=== PATIENT | male | born 1955 | race American Indian/Alaskan Native ===

== ENCOUNTER 2016-09-07 21:09 | Emergency (ER) | payer SELFPAY ==
[2016-09-07] MEDS ORDERED: ZOFRAN ONE (21:46)
[2016-09-07] MEDS ORDERED: DILAUDID ONE (21:46)
[2016-09-07] MEDS ORDERED: ZOFRAN IV ONE (21:52)
[2016-09-07] MEDS ORDERED: DILAUDID IV ONE (21:52)
[2016-09-07 21:54] LABS: Basophils % (Auto) 0.5 % (0.0-1.8); Eosinophils % (Auto) 2.5 % (0.0-4.3); Hematocrit 43.7 % (35.5-45.6); Hemoglobin 14.6 gm/dl (11.8-15.2); Mean Corpuscular HGB Conc 33 % (32-34); Mean Corpuscular Hemoglobin 30 pg (28-32); Mean Corpuscular Volume 89 fl (84-94); Platelet Count 214 K/mm3 (140-440); Red Blood Count 4.92 M/mm3 (3.65-5.03); Red Cell Distribution Width 13.8 % (13.2-15.2)
[2016-09-07] MEDS ORDERED: NORMODYNE IV ONE (22:04)
[2016-09-07] MEDS ORDERED: NACL 0.9% 500 ML 500 ML IV ONE (22:04)
[2016-09-07 22:24] LABS: Alanine Aminotransferase 17 units/L (7-56); Albumin 4.3 g/dL (3.9-5); Albumin/Globulin Ratio 1.3 %; Alkaline Phosphatase 109 units/L (35-129); Anion Gap 15 mmol/L; BUN/Creatinine Ratio 14.61; Blood Urea Nitrogen 19 mg/dL (9-20); Calcium 9.4 mg/dL (8.4-10.2); Carbon Dioxide 27 mmol/L (22-30); Chloride 100.1 mmol/L (98-107); Glucose 154 mg/dL (75-100); Lipase 25 units/L (13-60); Potassium 4.2 mmol/L (3.6-5.0); Sodium 138 mmol/L (137-145); Total Protein 7.6 g/dL (6.3-8.2)
[2016-09-07 22:35] LABS: Bilirubin,Urine NEG (Negative); Blood,Urine LG (Negative); Ketones,Urine NEG (Negative); Leukocyte Esterase,Urine NEG (Negative); Mucus,Urine FEW /HPF; Nitrite,Urine NEG (Negative); Protein,Urine <15 mg/dL mg/dL (Negative); Urobilinogen,Urine < 2.0 mg/dL (<2.0)
[2016-09-08] MEDS ORDERED: VALIUM IV ONE (00:11)
[2016-09-08] MEDS ORDERED: MORPHINE IV ONE (00:11)
--- NOTE | 2016-09-08 02:16 | Emergency Department Report ---
HPI - General Chief Complaint: Abdominal Pain Time Seen by Provider: 09/07/16 22:03 - HPI HPI: The patient's a 61-year-old male who presents for evaluation of abdominal pain. The patient reports abdominal pain, onset one hour prior to arrival, 10/10 in severity, crampy in quality, generalized, constant since onset. He also reports associated nausea without emesis. He says that his symptoms began at the eating curried chicken for dinner. The patient denies fever, chills, night sweats, diarrhea, blood in the stool, dark tarry stool, dysuria, hematuria, flank pain, genital discharge, inability to pass flatus. ED Past Medical Hx - Past Medical History Previous Medical History?: Yes Hx Hypertension: Yes - Surgical History Past Surgical History?: No - Social History Smoking Status: Never Smoker Substance Use Type: None - Medications Home Medications: Home Medications Medication Instructions Recorded Confirmed Last Taken Type Lisinopril 20 mg PO BID 09/07/16 09/07/16 Unknown History ED Review of Systems ROS: Stated complaint: POSS FOOD POISONING Other details as noted in HPI Constitutional: denies: fever ENT: denies: throat or neck pain Respiratory: denies: cough, shortness of breath Cardiovascular: denies: chest pain Endocrine: denies unexplained weight loss or gain Gastrointestinal: reports: abdominal pain, nausea Genitourinary: denies: dysuria Musculoskeletal: denies: leg swelling Skin: denies: rash Neurological: denies: headache Hematological/Lymphatic: denies: easy bleeding or easy bruising Psych: denies sadness or hopelessness Physical Exam - Physical Exam Vital Signs: Vital Signs 09/07/16 09/07/16 09/07/16 21:15 21:59 22:02 Temperature 97.8 F 98 F Pulse Rate 83 82 Respiratory 28 H 20 20 Rate Blood Pressure 190/129 Blood Pressure 185/107 [Left] O2 Sat by Pulse 98 100 100 Oximetry 09/07/16 09/07/16 09/07/16 22:11 22:35 23:41 Temperature Pulse Rate 79 84 85 Respiratory 16 14 Rate Blood Pressure 172/102 Blood Pressure 162/91 151/81 [Left] O2 Sat by Pulse 100 100 Oximetry 09/08/16 01:59 Temperature 98 F Pulse Rate 81 Respiratory 16 Rate Blood Pressure Blood Pressure 142/84 [Left] O2 Sat by Pulse 100 Oximetry Physical Exam: General: well-nourished, well-developed, no acute distress Head: Normocephalic, atraumatic Eyes: normal sclera ENT: Mucous membranes are pale and dry Neck: No neck stiffness, no cervical adenopathy Respiratory: Breath sounds equal bilaterally, no wheezing, rales, or rhonchi Cardio: S1 and S2 present, no murmurs, rubs, gallops, capillary refill is delayed Abdomen: Normoactive bowel sounds, soft abdomen, generalized tenderness to palpation present, no rigidity, no guarding or rebound tenderness Musc: No pitting edema Skin: No rash Neuro: no facial drooping, normal speech Psych: Normal affect ED Course Vital Signs 09/07/16 09/07/16 09/07/16 21:15 21:59 22:02 Temperature 97.8 F 98 F Pulse Rate 83 82 Respiratory 28 H 20 20 Rate Blood Pressure 190/129 Blood Pressure 185/107 [Left] O2 Sat by Pulse 98 100 100 Oximetry 09/07/16 09/07/16 09/07/16 22:11 22:35 23:41 Temperature Pulse Rate 79 84 85 Respiratory 16 14 Rate Blood Pressure 172/102 Blood Pressure 162/91 151/81 [Left] O2 Sat by Pulse 100 100 Oximetry 09/08/16 01:59 Temperature 98 F Pulse Rate 81 Respiratory 16 Rate Blood Pressure Blood Pressure 142/84 [Left] O2 Sat by Pulse 100 Oximetry ED Medical Decision Making - Lab Data Result diagrams: 09/07/16 21:25 09/07/16 21:25 - Medical Decision Making The patient was seen and examined by myself. The patient is placed on a rag room supervisor and continuous pulse ox. On initial evaluation, the patient was found to be in no distress. Evaluation orders are placed. IV access is established and the patient is given 1 L normal saline fluid bolus and Zofran for nausea, and IV dilaudid for pain. Lab results revealed mildly elevated glucose 154, with normal bicarbonate and anion gap, not consistent with DKA, and labs were overall grossly non- concerning including WBC, hemoglobin, hematocrit, electrolytes, renal function. The patient was reevaluated and reported that his pain was improved but persisted. On reexamination the patient remains with diffuse tenderness. The patient is given an IV dose of morphine for his pain. CT scan abdomen and pelvis is ordered. The patient is signed off to the overnight physician Dr. Reyes, home agrees to follow-up on results of CT scan of the abdomen and pelvis and to arrange appropriate disposition. Critical care attestation.: If time is entered above; I have spent that time in minutes in the direct care of this critically ill patient, excluding procedure time. ED Disposition Clinical Impression: Dehydration, Acute generalized abdominal pain Disposition: DISCHARGED TO HOME OR SELFCARE Is pt being admited?: No Does the pt Need Aspirin: No Condition: Stable Instructions: Acute Abdominal Pain (ED) Referrals: PRIMARY CARE, [Primary Care Provider] - 3-5 Days Forms: Work/School Release Form(ED) Time of Disposition: 02:29
[2016-09-08] MEDS ORDERED: NACL ONE (02:32)
--- NOTE | 2016-09-08 05:28 | Cat Scan Report ---
FINAL REPORT PROCEDURE: CT ABDOMEN PELVIS W CON TECHNIQUE: Computerized axial tomography of the abdomen and pelvis was performed after the IV injection of iodinated nonionic contrast. HISTORY: abdominal pain COMPARISON: No prior studies are available for comparison. FINDINGS: Visualized lower thorax: No significant abnormality. Liver: Normal size and attenuation. Spleen: Normal size and attenuation. Gallbladder and biliary system: Normal. Pancreas: Normal. Adrenals: Normal. Kidneys: There is a 3 centimeter cyst in the upper pole of the right kidney. There is a 3 millimeter stone in the mid left ureter causing moderate acute left hydronephrosis and hydroureter.. GI tract: There is diverticulosis and colitis of the left colon. There is no obstruction. The stomach and small bowel are unremarkable. The appendix is not seen.. Lymph nodes and mesentery: Normal. Vasculature: Normal. Bladder: Normal. Reproductive organs: Normal. Peritoneum: There is no ascites or free air, abscess or adenopathy.. Musculoskeletal structures: No significant abnormality. Other: None. IMPRESSION: There is a 3 centimeter cyst in the upper pole of the right kidney. There is a 3 millimeter stone in the mid left ureter causing moderate acute left hydronephrosis and hydroureter.. There is diverticulosis and colitis of the left colon. There is no obstruction. The stomach and small bowel are unremarkable. The appendix is not seen.. There is no ascites or free air, abscess or adenopathy..
--- NOTE | 2016-09-08 06:16 | Event Note ---
Date: 09/08/16 CT scan demonstrates left-sided colitis. The patient is afebrile, and tolerating liquid feeds, and does not have an exquisitely tender abdomen. The patient will be discharged with pain medication, nausea medication, antibiotics , and will be instructed to follow-up with outpatient gastroenterology. Return precautions are reviewed. Vital Signs 09/07/16 09/07/16 09/07/16 21:15 21:59 22:02 Temperature 97.8 F 98 F Pulse Rate 83 82 Respiratory 28 H 20 20 Rate Blood Pressure 190/129 Blood Pressure 185/107 [Left] O2 Sat by Pulse 98 100 100 Oximetry 09/07/16 09/07/16 09/07/16 22:11 22:35 23:41 Temperature Pulse Rate 79 84 85 Respiratory 16 14 Rate Blood Pressure 172/102 Blood Pressure 162/91 151/81 [Left] O2 Sat by Pulse 100 100 Oximetry 09/08/16 01:59 Temperature 98 F Pulse Rate 81 Respiratory 16 Rate Blood Pressure Blood Pressure 142/84 [Left] O2 Sat by Pulse 100 Oximetry Lab Results 09/07/16 09/07/16 09/07/16 Range/Units 21:25 21:25 22:03 WBC 7.0 (4.5-11.0) K/mm3 RBC 4.92 (3.65-5.03) M/mm3 Hgb 14.6 (11.8-15.2) gm/dl Hct 43.7 (35.5-45.6) % MCV 89 (84-94) fl MCH 30 (28-32) pg MCHC 33 (32-34) % RDW 13.8 (13.2-15.2) % Plt Count 214 (140-440) K/mm3 Lymph % (Auto) 42.1 H (13.4-35.0) % Cannon % (Auto) 7.4 H (0.0-7.3) % Eos % (Auto) 2.5 (0.0-4.3) % Baso % (Auto) 0.5 (0.0-1.8) % Lymph # 3.0 (1.2-5.4) K/mm3 Cannon # 0.5 (0.0-0.8) K/mm3 Eos # 0.2 (0.0-0.4) K/mm3 Baso # 0.0 (0.0-0.1) K/mm3 Seg Neutrophils % 47.5 (40.0-70.0) % Seg Neutrophils # 3.3 (1.8-7.7) K/mm3 Sodium 138 (137-145) mmol/L Potassium 4.2 (3.6-5.0) mmol/L Chloride 100.1 (98-107) mmol/L Carbon Dioxide 27 (22-30) mmol/L Anion Gap 15 mmol/L BUN 19 (9-20) mg/dL Creatinine 1.3 (0.8-1.5) mg/dL Estimated GFR > 60 ml/min BUN/Creatinine Ratio 14.61 % Glucose 154 H (75-100) mg/dL Calcium 9.4 (8.4-10.2) mg/dL Total Bilirubin 0.30 (0.1-1.2) mg/dL AST 22 (5-40) units/L ALT 17 (7-56) units/L Alkaline Phosphatase 109 (35-129) units/L Total Protein 7.6 (6.3-8.2) g/dL Albumin 4.3 (3.9-5) g/dL Albumin/Globulin Ratio 1.3 % Lipase 25 (13-60) units/L Urine Color Yellow (Yellow) Urine Turbidity Clear (Clear) Urine pH 6.0 (5.0-7.0) Ur Specific [place] 1.019 (1.003-1.030) Urine Protein <15 mg/dl (Negative) mg/dL Urine Glucose (UA) Neg (Negative) mg/dL Urine Ketones Neg (Negative) mg/dL Urine Blood Lg (Negative) Urine Nitrite Neg (Negative) Urine Bilirubin Neg (Negative) Urine Urobilinogen < 2.0 (<2.0) mg/dL Ur Leukocyte Esterase Neg (Negative) Urine WBC (Auto) 1.0 (0.0-6.0) /HPF Urine RBC (Auto) 49.0 (0.0-6.0) /HPF Urine Mucus Few /HPF
[2016-09-08] MEDS ORDERED: LEVAQUIN PO ONE (06:18)
[2016-09-08] MEDS ORDERED: BENTYL IM ONE (06:18)
[2016-09-08] MEDS ORDERED: FLAGYL PO ONE (06:18)
[2016-09-08 06:50] VITALS: BP 132/76
--- NOTE | 2016-09-08 10:15 | XRay Report ---
ABDOMINAL SERIES: History: Abdominal pain. Supine and upright views of the abdomen and frontal view of the chest are submitted. There is gas mixed with moderate stool throughout the colon. There are no dilated loops of bowel or air-fluid levels. There is no free intraperitoneal gas. The lungs are clear. IMPRESSION: Fecal retention.
== END 2016-09-08 06:54 | disposition home or self-care (01) ==
LOC: ED 21:09
DX: E86.0 Dehydration (principal); R10.84 Generalized abdominal pain; I10 Essential (primary) hypertension
CPT/HCPCS: 36415; 74022; 74177; 80053; 81001; 83690; 85025; 96361; 96372; 96374; 96375; 99285; J0500; J1170; J2270; J2405; J3360; J7040; Q9967

== ENCOUNTER 2016-09-09 03:24 | Emergency (ER) | payer SELFPAY ==
[2016-09-09 04:33] VITALS: BP 142/86
[2016-09-09 05:20] LABS: Anion Gap 19 mmol/L; BUN/Creatinine Ratio 13.33; Blood Urea Nitrogen 16 mg/dL (9-20); Calcium 9.3 mg/dL (8.4-10.2); Carbon Dioxide 24 mmol/L (22-30); Chloride 102.3 mmol/L (98-107); Glucose 136 mg/dL (75-100); Sodium 140 mmol/L (137-145)
[2016-09-09 06:49] LABS: Hematocrit 46.4 % (35.5-45.6); Hemoglobin 15.2 gm/dl (11.8-15.2); Mean Corpuscular HGB Conc 33 % (32-34); Mean Corpuscular Hemoglobin 29 pg (28-32); Mean Corpuscular Volume 90 fl (84-94); Platelet Count 206 K/mm3 (140-440); Red Blood Count 5.18 M/mm3 (3.65-5.03); Red Cell Distribution Width 13.9 % (13.2-15.2)
[2016-09-09 07:26] LABS: Basophils % (Auto) 0.3 % (0.0-1.8); Eosinophils % (Auto) 0.1 % (0.0-4.3)
[2016-09-09 07:29] LABS: Diff Status Complete
[2016-09-09 08:09] LABS: Blastocytes % (Manual) 0 %; Eosinophils % (Manual) 0 % (0.0-4.3)
[2016-09-09 08:10] LABS: RBC Morphology Normal
== END 2016-09-09 06:05 | disposition left against medical advice (07) ==
LOC: ED 03:24
DX: R10.9 Unspecified abdominal pain (principal); Z53.21 Procedure and treatment not carried out due to patient leaving prior to being seen by health care provider
CPT/HCPCS: 36415; 80048; 85007; 85025

== ENCOUNTER 2016-09-12 06:48 | Emergency (ER) | payer SELFPAY ==
[2016-09-12 07:40] LABS: Basophils % (Auto) 0.8 % (0.0-1.8); Eosinophils % (Auto) 1.6 % (0.0-4.3); Hematocrit 45.8 % (35.5-45.6); Hemoglobin 15.1 gm/dl (11.8-15.2); Mean Corpuscular HGB Conc 33 % (32-34); Mean Corpuscular Hemoglobin 29 pg (28-32); Mean Corpuscular Volume 89 fl (84-94); Platelet Count 213 K/mm3 (140-440); Red Blood Count 5.17 M/mm3 (3.65-5.03); Red Cell Distribution Width 13.4 % (13.2-15.2); White Blood Count 7.8 K/mm3 (4.5-11.0)
[2016-09-12] MEDS ORDERED: NACL 0.9% 1000 ML 1,000 ML IV ONE (07:50)
[2016-09-12] MEDS ORDERED: TORADOL IV ONE (07:50)
[2016-09-12] MEDS ORDERED: DILAUDID IV ONE (07:50)
--- NOTE | 2016-09-12 07:55 | Emergency Department Report ---
ED Abdominal Pain HPI - General Chief Complaint: Abdominal Pain Stated Complaint: ABD PAIN Time Seen by Provider: 09/12/16 07:37 Source: patient Mode of arrival: Ambulatory Limitations: No Limitations - History of Present Illness Initial Comments: 61 year old male with a past medical history of hypertension presents to the hospital complains of left-sided flank pain. Patient was seen here on September [address] Yao. Diagnosed with a 3 mm stone in the mid left ureter causing moderate acute left hydronephrosis and hydroureter. There is also diverticulosis and colitis of the left colon without signs of obstruction. Patient was placed on Bentyl, lisinopril, Cipro, Reglan, and Flagyl. No pain medications were prescribed. Patient presented the next day on the due to recurrent pain but felt better prior to M.D. evaluation and left prior to being seen. Pain reoccurred yesterday and is currently left-sided, 10/10 in intensity, intermittent. Patient unable to characterize pain at this time. Positive nausea and diaphoresis. No reports of vomiting. - Related Data Home Medications Medication Instructions Recorded Confirmed Last Taken Lisinopril 20 mg PO BID 09/07/16 09/12/16 Unknown Previous Rx's Medication Instructions Recorded Last Taken Type Ciprofloxacin HCl [Ciprofloxacin 500 mg PO Q12H #10 tab 09/08/16 Unknown Rx TAB] Dicyclomine [Bentyl] 10 mg PO QID PRN #20 capsule 09/08/16 Unknown Rx Lisinopril [Zestril TAB] 20 mg PO QDAY #30 tablet 09/08/16 Unknown Rx Metoclopramide [Reglan] 10 mg PO QID PRN #30 tablet 09/08/16 Unknown Rx metroNIDAZOLE [Flagyl] 500 mg PO Q8HR #15 tablet 09/08/16 Unknown Rx Ketorolac [Toradol] 10 mg PO Q6H PRN #20 tablet 09/12/16 Unknown Rx Tamsulosin [Flomax] 0.4 mg PO QDAY #7 cap 09/12/16 Unknown Rx oxyCODONE /ACETAMINOPHEN [Percocet 1 tab PO Q6HR PRN #20 tablet 09/12/16 Unknown Rx 5/325] Allergies Allergy/AdvReac Type Severity Reaction Status Date / Time No Known Allergies Allergy Verified 09/12/16 07:23 ED Review of Systems ROS: Stated complaint: ABD PAIN Other details as noted in HPI Comment: All other systems reviewed and negative Other: Constitutional: No fevers chills Eyes: No eye pain visual changes ENT: No ear pain or throat pain Neck: Denies pain Respiratory: Denies cough wheezing shortness of breath Cardiovascular: Denies chest pain, palpitations, syncope GI: As per HPI : As per HPI Musculoskeletal: Left flank pain Skin: Denies rash, lesions, erythema Neurologic: Denies headache, numbness, weakness Psychiatric: Denies suicidal ideation, hallucinations ED Past Medical Hx - Past Medical History Hx Hypertension: Yes - Surgical History Past Surgical History?: No - Social History Smoking Status: Former Smoker Substance Use Type: Prescribed - Medications Home Medications: Home Medications Medication Instructions Recorded Confirmed Last Taken Type Lisinopril 20 mg PO BID 09/07/16 09/12/16 Unknown History Ciprofloxacin HCl [Ciprofloxacin 500 mg PO Q12H #10 tab 09/08/16 09/12/16 Unknown Rx TAB] Dicyclomine [Bentyl] 10 mg PO QID PRN #20 capsule 09/08/16 09/12/16 Unknown Rx Lisinopril [Zestril TAB] 20 mg PO QDAY #30 tablet 09/08/16 09/12/16 Unknown Rx Metoclopramide [Reglan] 10 mg PO QID PRN #30 tablet 09/08/16 09/12/16 Unknown Rx metroNIDAZOLE [Flagyl] 500 mg PO Q8HR #15 tablet 09/08/16 09/12/16 Unknown Rx Ketorolac [Toradol] 10 mg PO Q6H PRN #20 tablet 09/12/16 Unknown Rx Tamsulosin [Flomax] 0.4 mg PO QDAY #7 cap 09/12/16 Unknown Rx oxyCODONE /ACETAMINOPHEN [Percocet 1 tab PO Q6HR PRN #20 tablet 09/12/16 Unknown Rx 5/325] ED Physical Exam - General Limitations: No Limitations - Other Other exam information: General: Positive distress secondary to pain, restless in the bed Head exam: Atraumatic, normocephalic Eyes exam: Normal appearance ENT: Moist mucous membrane, normal oropharynx Neck exam: Normal inspection, full range of motion, no meningismus nontender Respiratory exam: Clear to auscultation bilateral, no wheezes, rales, crackles Cardiovascular: Normal rate and rhythm, normal heart sounds Abdomen: Soft, nondistended, generalized tenderness greatest on the left side. Extremity: Full range of motion normal inspection no deformity Back: Normal Inspection, full range of motion, no tenderness Neurologic: Alert, oriented x3, cranial nerves intact, no motor or sensory deficit Psychiatric: normal affect, normal mood Skin: Warm, dry, intact ED Course Vital Signs 09/12/16 09/12/16 07:10 09:19 Temperature 97.4 F L 97.8 F Pulse Rate 64 63 Respiratory 26 H 18 Rate Blood Pressure 187/107 Blood Pressure 128/80 [Left] O2 Sat by Pulse 97 96 Oximetry ED Medical Decision Making - Lab Data Result diagrams: 09/12/16 07:26 09/12/16 07:26 Patient feels much better with treatment in the ED. Will be discharged home with additional medication for pain as well as Flomax. Lab Results 09/12/16 09/12/16 09/12/16 Range/Units 07:26 07:26 10:23 WBC 7.8 (4.5-11.0) K/mm3 RBC 5.17 H (3.65-5.03) M/mm3 Hgb 15.1 (11.8-15.2) gm/dl Hct 45.8 H (35.5-45.6) % MCV 89 (84-94) fl MCH 29 (28-32) pg MCHC 33 (32-34) % RDW 13.4 (13.2-15.2) % Plt Count 213 (140-440) K/mm3 Lymph % (Auto) 25.4 (13.4-35.0) % Centre % (Auto) 8.8 H (0.0-7.3) % Eos % (Auto) 1.6 (0.0-4.3) % Baso % (Auto) 0.8 (0.0-1.8) % Lymph # 2.0 (1.2-5.4) K/mm3 Centre # 0.7 (0.0-0.8) K/mm3 Eos # 0.1 (0.0-0.4) K/mm3 Baso # 0.1 (0.0-0.1) K/mm3 Seg Neutrophils % 63.4 (40.0-70.0) % Seg Neutrophils # 4.9 (1.8-7.7) K/mm3 Sodium 140 (137-145) mmol/L Potassium 3.9 D (3.6-5.0) mmol/L Chloride 100.0 (98-107) mmol/L Carbon Dioxide 26 (22-30) mmol/L Anion Gap 18 mmol/L BUN 15 (9-20) mg/dL Creatinine 1.2 (0.8-1.5) mg/dL Estimated GFR > 60 ml/min BUN/Creatinine Ratio 12.50 % Glucose 133 H (75-100) mg/dL Calcium 9.3 (8.4-10.2) mg/dL Total Bilirubin 0.50 (0.1-1.2) mg/dL AST 18 (5-40) units/L ALT 14 (7-56) units/L Alkaline Phosphatase 88 (35-129) units/L Total Protein 7.6 (6.3-8.2) g/dL Albumin 4.2 (3.9-5) g/dL Albumin/Globulin Ratio 1.2 % Lipase 22 (13-60) units/L Urine Color Yellow (Yellow) Urine Turbidity Clear (Clear) Urine pH 5.0 (5.0-7.0) Ur Specific [place] 1.019 (1.003-1.030) Urine Protein <15 mg/dl (Negative) mg/dL Urine Glucose (UA) Neg (Negative) mg/dL Urine Ketones Neg (Negative) mg/dL Urine Blood Sm (Negative) Urine Nitrite Neg (Negative) Urine Bilirubin Neg (Negative) Urine Urobilinogen < 2.0 (<2.0) mg/dL Ur Leukocyte Esterase Tr (Negative) Urine WBC (Auto) 1.0 (0.0-6.0) /HPF Urine RBC (Auto) 11.0 (0.0-6.0) /HPF U Epithel Cells (Auto) < 1.0 (0-13.0) /HPF Urine Bacteria (Auto) 1+ (Negative) /HPF Urine Mucus Few /HPF - Radiology Data Radiology results: report reviewed CT pelvis noncontrast: 4 x 4 by 4 mm distal left ureteral stone, mildly obstructing. Stone has advanced approximately 2 cm within the left ureter since 09/08/2016. Diverticulosis of the colon. - Medical Decision Making Patient has pain relief after Toradol, Zofran, and Dilaudid in the ED. He is recently diagnosed a kidney stone. Prescribed any pain medication. Patient will be prescribed on a narcotic, Toradol, and Flomax to aid in the pain and passage of stone. Stone is advancing as per repeat CT. Outpatient urology follow-up will be encouraged. Findings of colitis were no longer seen today however, patient be sure to continue his recently prescribed antibiotics until completion. - Differential Diagnosis renal colic, diverticulitis, colitis, UTI Critical Care Time: No Critical care attestation.: If time is entered above; I have spent that time in minutes in the direct care of this critically ill patient, excluding procedure time. ED Disposition Clinical Impression: Renal colic on left side, Diverticulosis Disposition: TO HOME OR SELFCARE Is pt being admited?: No Does the pt Need Aspirin: No Condition: Stable Instructions: Renal Colic (ED), Diverticulosis (ED) Additional Instructions: Take medications as prescribed. Follow-up with the urologist provided. Return if symptoms worsen. Prescriptions: Ketorolac [Toradol] 10 mg PO Q6H PRN #20 tablet PRN Reason: Pain oxyCODONE /ACETAMINOPHEN [Percocet 5/325] 1 tab PO Q6HR PRN #20 tablet PRN Reason: Pain Tamsulosin [Flomax] 0.4 mg PO QDAY #7 cap Referrals: REGINALDO GARCIA MD [Staff Physician] - 3-5 Days (urology ) Time of Disposition: 10:52
[2016-09-12 07:57] LABS: Alanine Aminotransferase 14 units/L (7-56); Albumin 4.2 g/dL (3.9-5); Albumin/Globulin Ratio 1.2 %; Alkaline Phosphatase 88 units/L (35-129); Anion Gap 18 mmol/L; Blood Urea Nitrogen 15 mg/dL (9-20); Calcium 9.3 mg/dL (8.4-10.2); Carbon Dioxide 26 mmol/L (22-30); Glucose 133 mg/dL (75-100); Lipase 22 units/L (13-60); Potassium 3.9 mmol/L (3.6-5.0); Sodium 140 mmol/L (137-145); Total Protein 7.6 g/dL (6.3-8.2)
--- NOTE | 2016-09-12 08:34 | Cat Scan Report ---
CT OF THE ABDOMEN AND PELVIS WITHOUT CONTRAST HISTORY: Left flank pain. TECHNIQUE: Helical CT without contrast. Sagittal and coronal reformatted images. FINDINGS: Compared to the CT abdomen pelvis with contrast dated 09/08/16. A 4 x 4 x 4 mm mid to distal left ureteral stone is identified resulting in moderate left hydronephrosis. The stone has advanced by approximately 2 cm since the comparison exam on 09/08/16. No additional nephrolithiasis is appreciated. 3.6 cm cyst at the superior pole the right kidney is noted. The right ureter and bladder are unremarkable. Normal prostate gland. Within the limits of a noncontrast exam, the remaining abdominal and pelvic viscera are within normal limits. The liver, biliary system, pancreas, spleen, adrenal glands and bladder are unremarkable. There are numerous diverticula in the ascending, descending and sigmoid colon. No acute inflammatory changes. The remaining bowel loops and appendix are within normal limits. The aorta is normal caliber. No ascites, bulky adenopathy or inflammatory changes. The lung bases are clear. Normal heart size. No suspicious bony lesion. IMPRESSION: 4 x 4 x 4 mm distal left ureteral stone, mildly obstructing. The stone appears to have advanced by approximately 2 cm within the left ureter since 09/08/16. Diverticulosis of the colon.
[2016-09-12 10:31] LABS: Bacteria,Urine 1+ /HPF (Negative); Bilirubin,Urine NEG (Negative); Blood,Urine SM (Negative); Ketones,Urine NEG (Negative); Leukocyte Esterase,Urine TR (Negative); Mucus,Urine FEW /HPF; Nitrite,Urine NEG (Negative); Protein,Urine <15 mg/dL mg/dL (Negative); Urobilinogen,Urine < 2.0 mg/dL (<2.0)
[2016-09-12 11:42] VITALS: BP 151/99
== END 2016-09-12 11:42 | disposition home or self-care (01) ==
LOC: ED 06:48
DX: N23 Unspecified renal colic (principal); K57.90 Diverticulosis of intestine, part unspecified, without perforation or abscess without bleeding; I10 Essential (primary) hypertension; Z87.891 Personal history of nicotine dependence
CPT/HCPCS: 36415; 74176; 80053; 81001; 83690; 85025; 96361; 96374; 96375; 99284; J1170; J1885; J7030